=== PATIENT | female | born 1940 | race Caucasian/White ===

== ENCOUNTER 2020-12-19 19:59 | Emergency (ER) | payer MEDICARE, OTHER ==
[~2020-12-19] VITALS: Ht 165.1 cm; Wt 71.4 kg
--- NOTE | 2020-12-19 20:05 | NUR ---
C/C: Syncopy in bathroom while on toilet. [facility] found the patient on the couch upon their arrival. Blood sugar taken at bedside to be 112.
--- NOTE | 2020-12-19 20:10 | NUR ---
MD Perla in room to do MSE.
--- NOTE | 2020-12-19 20:27 | NUR ---
Note undone in EDM - 12/19/20 at 2031 by MATT Patient does not wish to proceed with medical care recommended by Dr. Perla. Patient given information related to possible complications, up to and including , which could occur as a result of leaving the hospital at this time. Patient verbalizes understanding of risks involved due to leaving against medical advice. Patient has signed AMA form. Patient ambulates with steady gait, V/S stable, no IV access present on patient, left with all personal belongings.
[2020-12-19] MEDS ORDERED: IV NORMAL SALINE 1000 ML BAG IV ONE (20:30)
--- NOTE | 2020-12-19 20:30 | NUR ---
Patient requesting a food tray for dinner. Bedside swallow evaluation conducted with small sips of water. Patient was able to swallow the sips followed with glups of water. Patient is able to chew and swallow her dinner.
--- NOTE | 2020-12-19 20:34 | NUR ---
hydrographical technical officer in room to draw labs on patient.
--- NOTE | 2020-12-19 20:40 | NUR ---
aircraft launch and recovery technician in room to take x-ray of patient.
[2020-12-19 20:49] LABS: HEMATOCRIT 40.8 % (31.2-41.9); MEAN CORPUSCULAR HEMOGLOBIN 27.9 uug (24.7-32.8); MEAN CORPUSCULAR VOLUME 86.7 fL (75.5-95.3); PLATELET COUNT (AUTO) 125 K/uL (179-408)
[2020-12-19 20:52] LABS: CREATININE 1.2 mg/dL (0.6-1.3); POTASSIUM 4.7 mmol/L (3.5-5.1)
[2020-12-19 20:58] LABS: BILIRUBIN,DIRECT 0.1 mg/dL (0.0-0.2); BILIRUBIN,TOTAL 0.4 mg/dL (0.2-1.0)
[2020-12-19 21:22] LABS: *CLARITY,URINE CLEAR (CLEAR); *COLOR,URINE YELLOW (YELLOW); PH,URINE 5.5 (5.0-8.0); UGLUCOSE NEGATIVE (NEGATIVE)
[2020-12-19 21:23] LABS: *BILIRUBIN,URIN 1+ (NEGATIVE); *BLOOD, URINE TRACE INTACT (NEGATIVE); *KETONES,URINE TRACE (NEGATIVE); *UROBILINOGEN,URINE 0.2 E.U./dl (NORMAL); LEUKOCYTE ESTERASE ,URINE NEGATIVE (NEGATIVE); NITRITE, URINE NEGATIVE (NEGATIVE)
[2020-12-20] MEDS ORDERED: zocor PO
[2020-12-20] MEDS ORDERED: SERT100T PO
[2020-12-20] MEDS ORDERED: METF-442 PO
--- NOTE | 2020-12-20 00:25 | NUR ---
Patient sleeping on bed, eyes closed. No acute distress noted.
[2020-12-20] MEDS ORDERED: IV NORMAL SALINE 1000 ML BAG IV ONE (01:30)
--- NOTE | 2020-12-20 02:00 | NUR ---
Patient woke up and requested to use the bathroom. Patient assisted to go walk to the restroom. Ambulates with steady gait. Denies dizziness upon standing.
--- NOTE | 2020-12-20 02:12 | NUR ---
housing property manager for patient called to check on status of transfer for patient. housing property manager Yelena states that she is unable to get a hold of [facility] for a bed and is looking elsewhere to secure a bed for the patient. Call back number Yelena is .
--- NOTE | 2020-12-20 03:39 | NUR ---
Dr Perla speaking with Dr Arias who will accept patient in [facility]. [employer] Yelena will call back with transfer info.
--- NOTE | 2020-12-20 03:58 | NUR ---
Ob Scrub Tech from [facility] group called back with transfer information. Patient will be going to [facility] room 844 Bed2. Accepting MD is Dr Arias. [facility]A [facility] is [phone] by [facility].
--- NOTE | 2020-12-20 04:01 | NUR ---
Call for report number for [facility] is .
--- NOTE | 2020-12-20 04:06 | NUR ---
Called and gave report to VINNIE Ram at [facility].
--- NOTE | 2020-12-20 04:20 | NUR ---
Clinicals of patient faxed over to [facility] at RN Leanna request.
--- NOTE | 2020-12-20 04:30 | NUR ---
Patient requested that her friend Damari's number be placed in a note here just in case her phone dies: .
--- NOTE | 2020-12-20 05:46 | NUR ---
Patient requested to use the restroom, she was assisted to use the restroom, ambulates with steady gait, denies dizziness upon standing up.
--- NOTE | 2020-12-20 05:51 | NUR ---
MD Perla made aware of patient's increased SBP to 170s. No pending orders at this time.
--- NOTE | 2020-12-20 07:09 | NUR ---
Hand off report given to VINNIE Hadley.
--- NOTE | 2020-12-20 07:15 | NUR ---
Pt assissted to bathroom w/ steaday gait, denies dizziness.
--- NOTE | 2020-12-20 07:50 | NUR ---
Breakfast tray provided, pt had moderate appetite.
--- NOTE | 2020-12-20 08:21 | NUR ---
Awaiting for ambulance transfer. Pt is resting in bed, speaking on the phone.
--- NOTE | 2020-12-20 09:18 | NUR ---
Report given to transfering EMT's, all belonging sent w/ pt. Pt left ER in stable condition.
== END 2020-12-20 09:19 | disposition short-term general hospital (02) ==
LOC: ER 20:00
DX: R55 Syncope and collapse (principal); E87.2 Acidosis; E86.0 Dehydration; R94.31 Abnormal electrocardiogram [ECG] [EKG]; I44.0 Atrioventricular block, first degree; E11.9 Type 2 diabetes mellitus without complications; Z79.84 Long term (current) use of oral hypoglycemic drugs; Z79.899 Other long term (current) drug therapy; Z20.822 Contact with and (suspected) exposure to COVID-19
CPT/HCPCS: 36415; 70030-TC; 71045; 83605; 85025; 87040; 93005; A4663; C1758; J7030